=== PATIENT | male | born 1950 | race Caucasian/White ===

== ENCOUNTER 2021-04-09 07:01 | Day surgery (SDC) | payer OTHER ==
[2021-04-07 15:12] VITALS: BMI 28.8
[~2021-04-09 07:01] MED LIST: LACTATED RINGERS 1,000 ML IV SCH; LIDOCAINE 1% (10MG/ML) FOR IV START INTRADERMA PRN
[2021-04-09 07:23] VITALS: BP 137/77; PULSE 84; RESP 16; TEMP 97.6
[2021-04-09] MEDS ORDERED: PROPOFOL 10 MG/ML 20 ML VIAL IV ONE (07:36)
--- NOTE | 2021-04-09 08:02 | P.PCN ---
Date of Procedure: 04/09/21 Procedure(s) Performed: BRIEF HISTORY: Patient is a 70-year-old pleasant white male scheduled for an elective colonoscopy as a part of follow-up of large cecal polyp noted on a recent colonoscopy in December 2020. There was a 3-4 cm broad-based polyp in the base of the cecum with appendiceal orifice that was removed by snare polypectomy followed by Endo Clip placement. Biopsy revealed adenoma. PROCEDURE PERFORMED: Colonoscopy with snare polypectomy and argon plasma coagulation. PREOPERATIVE DIAGNOSIS: Follow-up large cecal polyp in December 2020. IV sedation per Anesthesia. PROCEDURE: After informed consent was obtained, the patient, was brought into the endoscopy unit. IV sedation was administered by Anesthesia under continuous monitoring. Digital rectal examination was normal. Initially the Olympus CF-160 flexible video colonoscope was then inserted in the rectum, gradually advanced into the cecum without any difficulty. Careful examination was performed as the scope was gradually being withdrawn. Ileocecal valve and the appendiceal orifice were visualized and appeared normal. Prep was excellent. In the base of the cecum and the appendiceal orifice there was a 2 cm residual polyp identified and the previously placed Endo Clip was still noted. At this time I proceeded with snare polypectomy and most of the polyp was removed. There was some residual polyp noted at the end of the Endo Clip and I performed as the plasma coagulation. The rest of the ascending colon, transverse colon, descending colon, sigmoid colon, and rectum appeared normal. Retroflexion was performed in the rectum and no lesions were seen. scattered left sided diverticulosis seen. The patient tolerated the procedure well. IMPRESSION: 2 cm residual polyp in the base of the cecum around the appendiceal orifice with previously noted Endo Clip seen. Status post snare polypectomy followed by arg on plasma coagulation Scattered left sided diverticulosis RECOMMENDATIONS: Findings of this examination were discussed with the patient as well as his family. He was advised to follow with the biopsy results and will plan a repeat colonoscopy in one year..
== END 2021-04-09 08:49 | disposition home or self-care (01) ==
LOC: ORWHC2ENDO 07:01
PROVIDERS: ATTEND Internal Medicine Gastroenterology
DX: Z12.11 Encounter for screening for malignant neoplasm of colon (principal); D12.0 Benign neoplasm of cecum; K57.30 Diverticulosis of large intestine without perforation or abscess without bleeding; Z86.010 Personal history of colon polyps; Z85.46 Personal history of malignant neoplasm of prostate; Z79.899 Other long term (current) drug therapy
CPT/HCPCS: 88305; 45385; J2704; 45388

== ENCOUNTER → 2022-09-23 | Outpatient (CLI) | payer OTHER ==
--- NOTE | 2022-09-23 09:37 | US ---
EXAMINATION TYPE: US liver DATE OF EXAM: 09/23/2022 COMPARISON: NONE CLINICAL INDICATION: Male, 71 years old with history of K76.89 OTHER SPECIFIED DISEASES OF LIVER; Dona er cyst seen on recent exam done at [facility] TECHNIQUE: Multiple sonographic images of the right upper quadrant are obtained. FINDINGS: EXAM MEASUREMENTS: Liver Length: 16.1 cm Gallbladder Wall: 0.3 cm CBD: 0.4 cm Right Kidney: 10.9 x 5.5 x 6.2 cm Pancreas: obscured by overlying midline bowel gas Liver: 6.7 x 6.9 x 8.4cm cyst right lobe mural nodule thought to be present on a single image. Gallbladder: wnl Evidence for sonographic Cunha's sign: no CBD: visualized portions wnl, limited by overlying bowel gas Right Kidney: wnl IMPRESSION: Right hepatic cyst measuring up to 8.4 cm. Cyst appears relatively simple. There may be some a mural nodule seen on one image. Consider follow-up MRI liver mass protocol.
== END | disposition home or self-care (01) ==
LOC: RADUSWWP 08:26
PROVIDERS: ATTEND Internal Medicine
DX: K76.89 Other specified diseases of liver (principal)
CPT/HCPCS: 76705

== ENCOUNTER → 2023-01-16 | Outpatient (CLI) | payer OTHER | END | disposition home or self-care (01) | LOC: LABWHC1 10:27 | PROVIDERS: ATTEND Internal Medicine | DX: Z01.83 Encounter for blood typing (principal) | CPT/HCPCS: 86850; 86900; 86901 ==

== ENCOUNTER → 2023-01-23 | Outpatient (CLI) | payer OTHER ==
--- NOTE | 2023-01-23 10:02 | MR ---
EXAMINATION TYPE: MR liver wo/w con DATE OF EXAM: 01/23/2023 8:15 AM CLINICAL INDICATION:Male, 72 years old with history of K76.89 hepatic cyst; PHH, Hepatic cyst, Hx of Prostate cancer COMPARISON: Ultrasound 09/23/2022 TECHNIQUE: Multiplanar multi-sequence imaging was performed without contrast. Post contrast imaging was performed. Post IV contrast subtraction images were also submitted for review. IV Contrast: 9 cc Gadavist FINDINGS: LOWER CHEST: The heart is mildly enlarged for size. ABDOMEN Liver: No evidence for hepatic steatosis or cirrhosis. There is a large hepatic cyst measuring up to 8.7 x 6.2 cm with small adjacent cyst present measuring up to 6 mm. Mural nodule seen on prior ultras ound not appreciated. Additional other smaller scattered high T2 signal/low T1 signal cysts without enhancement are present . Gallbladder and Bile ducts: No evidence for ductal dilation, or biliary stricture or evidence of chol edocholithiasis. The gallbladder is within normal limits. Pancreas: No ductal dilation. No evidence for solid mass. Spleen: Normal for size. Adrenal glands: Unremarkable. Kidneys: No evidence for obstructive uropathy. No suspicious renal masses. Stomach and Bowel: No evidence for bowel wall thickening or evidence for obstruction.. Scattered col onic diverticula present. Small hiatal hernia is present. Peritoneum: No evidence of pneumoperitoneum or free fluid. Vasculature: No aortic aneurysm. Musculoskeletal: The osseous structures appear intact. Lymph Nodes: No gross evidence for lymphadenopathy. Abdominal wall: Unremarkable. IMPRESSION: Hepatic cyst measuring up to 8.7 cm which is relatively simple. No evidence for mural nodule seen on prior ultrasound suggesting that the nodularity was artifactual/secondary to [employer] t linnea. No suspicious masses or acute process within the abdomen.
== END | disposition home or self-care (01) ==
LOC: RADMRIMAIN 07:24
PROVIDERS: ATTEND Internal Medicine
DX: K76.89 Other specified diseases of liver (principal); Z85.46 Personal history of malignant neoplasm of prostate
CPT/HCPCS: 74183; A9585

== ENCOUNTER → 2023-05-31 | Outpatient (CLI) | payer OTHER ==
--- NOTE | 2023-05-31 12:31 | US ---
EXAMINATION TYPE: US venous doppler duplex LE RT DATE OF EXAM: 05/31/2023 12:24 PM COMPARISON: NONE CLINICAL INDICATION: Male, 72 years old with history of M79.609 POPLITEAL PAIN; Pain behind right kne e SIDE PERFORMED: Right TECHNIQUE: The lower extremity deep venous system is examined utilizing real time linear array sonog manuel with graded compression, doppler sonography and color-flow sonography. VESSELS IMAGED: Common Femoral Vein Deep Femoral Vein Greater Saphenous Vein * Femoral Vein Popliteal Vein Small Saphenous Vein * Proximal Calf Veins (* superficial vessels) Right Leg: Negative for DVT IMPRESSION: Grayscale, color doppler, spectral doppler imaging performed of the deep veins of the [facility] lower extremity. There is normal flow, compressibility, vascular waveforms. Negative exam.
== END | disposition home or self-care (01) ==
LOC: RADUSWWP 12:01
PROVIDERS: ATTEND Internal Medicine
DX: M79.604 Pain in right leg (principal); M25.561 Pain in right knee

== ENCOUNTER → 2024-09-01 | Outpatient (CLI) | payer OTHER ==
--- NOTE | 2024-09-01 10:31 | US ---
EXAMINATION TYPE: US carotid duplex BILAT DATE OF EXAM: 09/01/2024 COMPARISON: NONE CLINICAL INDICATION: Male, 73 years old with history of I65.23 OCCLUSION AND STENOSIS OF BILATERAL CA ROTID; stenosis Additional History: .... TECHNIQUE: Grayscale, color Doppler and spectral Doppler evaluation of the bilateral carotid systems and vertebral arteries. Indirect Doppler criteria was utilized. FINDINGS: EXAM MEASUREMENTS: RIGHT: Peak Systolic Velocity (PSV) cm/sec ----- Right CCA: 114 ----- Right ICA: 101 ----- Right ECA: 105 ICA/CCA ratio: 0.9 RIGHT: End Diastole cm/sec ----- Right CCA: 24.7 ----- Right ICA: 21.4 ----- Right ECA: 14.9 LEFT: Peak Systolic Velocity (PSV) cm/sec ----- Left CCA: 107 ----- Left ICA: 106 ----- Left ECA: 92.3 ICA/CCA ratio: 1.0 LEFT: End Diastole cm/sec ----- Left CCA: 24.6 ----- Left ICA: 22.1 ----- Left ECA: 13.9 VERTEBRALS (direction of flow): Right Vertebral: Antegrade Left Vertebral: Antegrade Rhythm: Normal STEEL MELTER NOTES: No significant stenosis seen Color Doppler imaging shows patency with blood flow throughout the carotid artery. Spectral waveforms are within normal limits. IMPRESSION: Right: No hemodynamically significant stenosis. Left: No hemodynamically significant stenosis. Criteria for Assigning % of Stenosis / Diameter reduction (Estimation based on the indirect measurements of the internal carotid artery velocities (ICA PSV). 1. Normal (no stenosis)=ICA PSV < 180 cm/s: ratio < 2.0: ICA EDV<40 cm/s. 2. Less than 50% stenosis=ICA PSV < 180 cm/s: ratio < 2.0: ICA EDV<40 cm/s. 3. 50 to 69% stenosis=ICA PSV of 180 to 230 cm/s: ration 2.0 ? 4.0: ICA EDV 40-100 cm/s. PSV 125-180 cm/sec and ICA/CCA PSV Ratio ? 2.0 is also consistent with 50-69% stenosis 4. Greater than 70% stenosis to near occlusion= ICA PSV > 230 cm/s: ratio > 4.0: ICA EDV > 100 cm/s. 5. Near occlusion= ICA PSV velocities may be low or undetectable: variable ratio and ICA EDV. 6. Total occlusion=unable to detect flow. [facility], , 09/01/2024 10:29 AM
== END | disposition home or self-care (01) ==
LOC: RADUSWWP 09:59
PROVIDERS: ATTEND Internal Medicine
DX: I65.23 Occlusion and stenosis of bilateral carotid arteries (principal)
CPT/HCPCS: 93880